=== PATIENT | male | born 1980 | race Caucasian/White ===

== ENCOUNTER → 2018-04-30 | Outpatient (CLI) | payer OTHER ==
--- NOTE | 2018-04-30 17:37 | RAD ---
5 view lumbar spine radiographs 04/30/2018 CLINICAL HISTORY: Low back pain. AP, 2 lateral and bilateral oblique digital radiographs of the lumbar spine were obtained. The alignment of the lumbar vertebrae is within normal limits. No fracture or subluxation of the lumbar vertebrae is seen. Minimal degenerative changes are seen involving the lower lumbar disc spaces consisting of vertebral endplate sclerosis and minimal anterior vertebral body osteophyte formation. IMPRESSION: Minimal degenerative changes are seen involving the lower lumbar spine. No acute osseous abnormality is seen. Electronically signed by: King Guerrero MD (04/30/2018 5:33 PM) [id number]
== END | disposition home or self-care (01) ==
LOC: RAD 16:49
PROVIDERS: ATTEND Physician Assistant
DX: M47.896 Other spondylosis, lumbar region (principal); M25.78 Osteophyte, vertebrae
CPT/HCPCS: 72110